=== PATIENT | male | born 1950 | race Caucasian/White ===

== ENCOUNTER 2021-03-24 09:29 | Day surgery (SDC) | payer MEDICARE ==
[~2021-03-24] VITALS: Ht 175.3 cm; Wt 72.1 kg
[~2021-03-24 09:29] MED LIST: Aspir 8181 MG; ELIQUIS5 MG PO; KETO10 PO; LOSA50 PO; METO50ER PO; Percocet 5-3251 EACH PO; WARF4 PO; Zofran Odt4 MG SL
--- NOTE | 2021-03-24 11:03 | NUR ---
03/24/21 1103 Jaymie Loving (Abby ONE ASCENDING COLON POLYP (5MM) REMOVED BUT UNABLE TO RETRIEVE.
== END 2021-03-24 11:32 | disposition home or self-care (01) ==
LOC: ORSCSDS 09:29
PROVIDERS: Internal Medicine Gastroenterology
PROC: 0DBK8ZX Excision of Ascending Colon, Via Natural or Artificial Opening Endoscopic, Diagnostic (ICD-10-PCS; principal; 2021-03-24 10:45)
DX: Z12.11 Encounter for screening for malignant neoplasm of colon (principal); D37.4 Neoplasm of uncertain behavior of colon; K57.30 Diverticulosis of large intestine without perforation or abscess without bleeding; Z86.010 Personal history of colon polyps; I48.91 Unspecified atrial fibrillation; Z79.01 Long term (current) use of anticoagulants; Z79.899 Other long term (current) drug therapy
CPT/HCPCS: J2704; J7120